=== PATIENT | female | born 1975 | race Caucasian/White ===

== ENCOUNTER 2017-03-16 10:05 | Emergency (ER) | payer MEDICAID, OTHER ==
[~2017-03-16] VITALS: Ht 167.6 cm; Wt 66.8 kg
[2017-03-16 10:06] VITALS: BP 133/72
[2017-03-16] MEDS ORDERED: BUPR100T3 (10:13)
[2017-03-16] MEDS ORDERED: CITA10TA5 (10:13)
[2017-03-16] MEDS ORDERED: MUPI2OI EXT (10:51)
[2017-06-12] MEDS ORDERED: MINI1CAP PO (15:16)
[2017-06-12] MEDS ORDERED: ZOFR4TAB3 PO (19:19)
== END 2017-03-16 10:55 | disposition home or self-care (01) ==
LOC: M ED 10:05
DX: L73.9 Follicular disorder, unspecified (principal); Z72.0 Tobacco use

== ENCOUNTER 2017-04-11 17:37 | Emergency (ER) | payer MEDICAID, OTHER ==
[~2017-04-11] VITALS: Ht 165.1 cm; Wt 68.2 kg
[~2017-04-11 17:37] MED LIST: BUPR100T3; CITA10TA5; MUPI2OI EXT
[2017-04-11 17:38] VITALS: BP 126/67
[2017-04-11] MEDS ORDERED: TOPA1TAB PO (17:44)
--- NOTE | 2017-04-11 19:14 | REP ---
Clinical: Trauma. Rule out foreign body to first toe. Technique: AP, lateral, bilateral oblique views of the left toes. Findings: Age-related degenerative changes to the first toe including hallux valgus deformity noted. No acute fracture dislocation. No obvious foreign body. Impression: Degenerative changes. No obvious acute fracture / dislocation or foreign body. Signed by Maurice Contreras MD 04/11/2017 07:06 P
[2017-06-12] MEDS ORDERED: MINI1CAP PO (15:16)
[2017-06-12] MEDS ORDERED: ZOFR4TAB3 PO (19:19)
== END 2017-04-11 19:47 | disposition home or self-care (01) ==
LOC: M ED 17:37
DX: B35.1 Tinea unguium (principal); Z72.0 Tobacco use

== ENCOUNTER 2017-04-29 07:47 | Emergency (ER) | payer OTHER ==
[~2017-04-29] VITALS: Ht 167.6 cm; Wt 68.2 kg
[~2017-04-29 07:47] MED LIST changes: +TOPA1TAB PO
[2017-04-29] MEDS ORDERED: NAPROXEN 250 MG TAB PO ONE (09:30)
--- NOTE | 2017-04-29 10:19 | REP ---
ULTRASOUND RIGHT NECK: Ultrasound right neck soft tissues performed. Multiple lymph nodes are seen in the region of the reported palpable abnormalities. The largest measure 1.6 x 0.7 x 1.2 cm and 1.8 x 0.6 x 1.2 cm. IMPRESSION: Multiple lymph nodes identified in the right neck soft tissues as discussed above. Signed by Guillermo Del Cid MD 04/29/2017 05:40 P
[2017-04-29 10:41] VITALS: BP 110/61
[2017-04-29] MEDS ORDERED: NAPR500T PO (10:41)
[2017-04-29] MEDS ORDERED: AMOX500C PO (10:41)
[2017-06-12] MEDS ORDERED: MINI1CAP PO (15:16)
[2017-06-12] MEDS ORDERED: ZOFR4TAB3 PO (19:19)
== END 2017-04-29 10:48 | disposition home or self-care (01) ==
LOC: M ED 07:47
DX: R59.0 Localized enlarged lymph nodes (principal); F99 Mental disorder, not otherwise specified; Z79.899 Other long term (current) drug therapy; Z88.5 Allergy status to narcotic agent; F17.210 Nicotine dependence, cigarettes, uncomplicated

== ENCOUNTER → 2017-07-08 | Outpatient (CLI) | payer OTHER ==
[~2017-07-08] MED LIST changes: +AMOX500C PO; +CLON0.2T PO; +ISOVUE-370 76% 100ML VIAL (Q9967) As Ordered ONE; +MINI1CAP PO; +NAPR500T PO; +ZOFR4TAB3 PO
--- NOTE | 2017-07-08 10:55 | REP ---
CT NECK WITH CONTRAST: HISTORY: Enlarged lymph nodes. CONTRAST: Isovue 370, 75 mL. The naso, hodan- and hypopharynx, larynx and subglottic trachea are normal in appearance. The salivary and thyroid glands are normal in size and density. Small lymph nodes less than 1 cm in size are present in the internal jugular chains, posterior triangles and submandibular areas. The lung apices are clear. Minimal mucosal thickening is present in the maxillary sinuses. A left ocular prosthesis is present. IMPRESSION: There is no neck mass or adenopathy. Signed by Ricco Hamlin MD 07/08/2017 11:08 A
== END ==
LOC: M RAD 09:43
PROVIDERS: ATTEND Otolaryngology
DX: R59.0 Localized enlarged lymph nodes (principal)
CPT/HCPCS: 70491; Q9967

== ENCOUNTER 2017-07-12 12:47 | Emergency (ER) | payer OTHER ==
[~2017-07-12] VITALS: Ht 167.6 cm; Wt 71.3 kg
[~2017-07-12 12:47] MED LIST changes: -CLON0.2T PO; -ISOVUE-370 76% 100ML VIAL (Q9967) As Ordered ONE
[2017-07-12] MEDS ORDERED: NITROGLYCERIN 0.4 MG SUBL TABLET SL PRN (13:00)
[2017-07-12] MEDS ORDERED: ASPIRIN 81 MG CHEW TABLET PO ONE (13:00)
[2017-07-12] MEDS ORDERED: CLON0.2T PO (13:10)
--- NOTE | 2017-07-12 13:49 | REP ---
Chest two views HISTORY: Chest pain Comparison: None The lungs are clear. The heart is normal in size. The pulmonary vasculature is normal in appearance. The bony structure is intact. IMPRESSION: No acute disease. Signed by Ricco Hamlin MD 07/12/2017 01:40 P
[2017-07-12 13:52] LABS: BASO % 0.2 % (0.0-1.0); EOS # 0.1 10^3/uL (0.0-0.50); EOS % 1.3 % (0.0-3.0); IMMATURE GRANULOCYTE % 0.2 % (0-0); LYMPH # 1.1 10^3/uL (1.5-4.5); LYMPH % 20.6 % (24.0-44.0); MEAN CORPUSCULAR HEMOGLOBIN 29.6 pg (27.0-33.0); MEAN CORPUSCULAR HGB CONC 33.8 g/dl (32.0-36.5); MEAN CORPUSCULAR VOLUME 87.4 fl (80.0-96.0); MONO # 0.4 10^3/uL (0.0-0.8); MONO % 7.6 % (0.0-5.0); NEUTROPHILS # 3.7 10^3/uL (1.8-7.7); NEUTROPHILS % 70.1 % (36.0-66.0); PLATELET COUNT, AUTOMATED 231 10^3/uL (150-450); RED CELL DISTRIBUTION WIDTH 11.9 % (11.5-14.5); WHITE BLOOD COUNT 5.3 10^3/uL (4.0-10.0)
[2017-07-12 13:55] VITALS: BP 115/59
[2017-07-12] MEDS ORDERED: ONDANSETRON 4MG/2ML VIAL (J2405) As Ordered ONE (13:59)
[2017-07-12] MEDS ORDERED: ONDANSETRON 4MG/2ML VIAL (J2405) IV ONE (14:00)
[2017-07-12 14:02] LABS: INR 0.91
[2017-07-12 14:14] LABS: ALBUMIN 4.2 GM/DL (3.2-5.2); ALBUMIN/GLOBULIN RATIO 1.31 (1.00-1.93); ALKALINE PHOSPHATASE 90 U/L (45-117); ALT/SGPT 12 U/L (12-78); ANION GAP 8 MEQ/L (8-16); AST/SGOT 12 U/L (7-37); BILIRUBIN,DIRECT < 0.1 MG/DL (0.0-0.2); BILIRUBIN,TOTAL 0.4 MG/DL (0.2-1.0); BLOOD UREA NITROGEN 13 MG/DL (7-18); CALCIUM LEVEL 8.7 MG/DL (8.5-10.1); CARBON DIOXIDE LEVEL 24 MEQ/L (21-32); CHLORIDE LEVEL 109 MEQ/L (98-107); CREATININE FOR GFR 0.92 MG/DL (0.55-1.02); GLOMERULAR FILTRATION RATE > 60.0 (>58); GLUCOSE, FASTING 83 MG/DL (70-105); POTASSIUM SERUM 3.7 MEQ/L (3.5-5.1); SODIUM LEVEL 141 MEQ/L (136-145); TOTAL PROTEIN 7.4 GM/DL (6.4-8.2)
[2017-07-12 15:18] LABS: CONTROL LINE HCG INT CTR LINE PRESENT
[2017-07-12] MEDS ORDERED: ISOVUE-370 76% 100ML VIAL (Q9967) As Ordered ONE (17:24)
[2017-07-12] MEDS ORDERED: NS 1,000 ML IV ONE (17:30)
--- NOTE | 2017-07-12 18:32 | REP ---
CT ANGIO CHEST: HISTORY: Dyspnea. COMPARISON CT CHEST: None. CONTRAST: 100 mL Isovue-370 There is excellent visualization of the pulmonary arterial vasculature. There are no focal filling defects present that would be considered consistent with pulmonary emboli. There is no mediastinal or hilar adenopathy. There are no pleural or pericardial effusions. The images osseous structures are within normal limits. Evaluation of the lung duarte show no abnormal nodules, masses or opacities. IMPRESSION: CT findings are within normal limits. CT ABDOMEN AND PELVIS: HISTORY: Lower abdominal pain. The examination was ordered and performed without intravenous contrast, which decreases the sensitivity the exam. There are no prior exams for comparison. The lung bases are clear. There is an incidental 3 mm sized pleural based left lower lobe nodule. Limited evaluation of the solid intraabdominal organs and gallbladder show no gross abnormalities. Limited evaluation of the pancreas, adrenal glands and kidneys show no gross abnormalities. There is no nephroureterolithiasis, hydronephrosis or hydroureter. There are no urinary bladder calcifications. Limited evaluation of the bowel loops and the mesentery show on gross abnormalities. There is no evidence of free fluid or free air. Limited evaluation of the abdominal aorta and periaortic regions show no gross abnormalities. CT PELVIS: Limited evaluation of the bowel loops and their mesenteries show no gross abnormalities. There is no free fluid or free air. There is no evidence of a mass or adenopathy. Bone window technique through the examination shows the osseous structures to be within normal limits. IMPRESSION: CT findings as described above, within normal limits. There is an incidental 3 mm sized pleural based nodule in the left lung base. Signed by Jarret Montaño DO 07/12/2017 07:07 P
[2017-07-12 20:14] VITALS: BP 98/52
--- NOTE | 2017-07-13 12:20 | ECGEPIP ---
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
--- NOTE | 2017-07-13 12:29 | ECGEPIP ---
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
--- NOTE | 2017-07-15 12:56 | ED PDOC ---
Post-Departure Follow-Up dr persaud faxed formal report of ct abd/p for fu Puja Polanco MD Jul 15, 2017 12:56
== END 2017-07-12 20:30 | disposition home or self-care (01) ==
LOC: EDBD 12:47 → M ED 12:47
DX: R07.9 Chest pain, unspecified (principal); R06.02 Shortness of breath; R11.0 Nausea; Z79.899 Other long term (current) drug therapy; Z88.5 Allergy status to narcotic agent; F17.210 Nicotine dependence, cigarettes, uncomplicated
CPT/HCPCS: 71020; 71275; 74177; 80048; 80076; 82550; 82553; 83690; 84703; 85025; 85610; 85730; 93000; 93041; 94760; 96374; 99285; J2405; Q9967

== ENCOUNTER 2017-12-02 07:20 | Emergency (ER) | payer OTHER ==
[2017-12-02] MEDS: NS 1,000 ML IV (08:15)
[2017-12-02] MEDS: ONDANSETRON 4MG/2ML VIAL (J2405) IV (08:30)
[2017-12-02 08:45] LABS: BASO % 0.2 % (0.0-1.0); EOS # 0.2 10^3/uL (0.0-0.50); EOS % 3.3 % (0.0-3.0); HEMATOCRIT 42.6 % (36.0-47.0); HEMOGLOBIN 14.5 g/dl (12.0-15.5); IMMATURE GRANULOCYTE % 0.2 % (0-3.0); LYMPH # 0.9 10^3/uL (1.5-4.5); LYMPH % 16.9 % (24.0-44.0); MEAN CORPUSCULAR HEMOGLOBIN 29.5 pg (27.0-33.0); MEAN CORPUSCULAR VOLUME 86.6 fl (80.0-96.0); MONO # 0.5 10^3/uL (0.0-0.8); MONO % 9.1 % (0.0-5.0); NEUTROPHILS # 3.8 10^3/uL (1.8-7.7); NEUTROPHILS % 70.3 % (36.0-66.0); PLATELET COUNT, AUTOMATED 178 10^3/uL (150-450); RED BLOOD COUNT 4.92 10^6/uL (4.00-5.40); RED CELL DISTRIBUTION WIDTH 12.4 % (11.5-14.5); WHITE BLOOD COUNT 5.4 10^3/uL (4.0-10.0)
[2017-12-02 08:49] LABS: KETONE, URINE AUTO RFX NEGATIVE (NEGATIVE); LEUKOCYTE ESTERASE UR AUTO RFX NEGATIVE (NEGATIVE); NITRITE, URINE AUTO RFX NEGATIVE (NEGATIVE); RBC, URINE AUTO RFX 3 /HPF (0-3); SPECIFIC GRAVITY UR AUTO RFX 1.027 (1.002-1.035); SQUAM EPITHELIAL CELL UR AURFX 4 /HPF (0-6); WBC, URINE AUTO RFX 2 /HPF (0-3)
[2017-12-02 09:12] LABS: ALBUMIN 3.8 GM/DL (3.2-5.2); ALBUMIN/GLOBULIN RATIO 1.06 (1.00-1.93); ALKALINE PHOSPHATASE 79 U/L (45-117); ALT/SGPT 12 U/L (12-78); AMYLASE 33 U/L (25-115); ANION GAP 7 MEQ/L (8-16); AST/SGOT 23 U/L (7-37); BILIRUBIN,DIRECT < 0.1 MG/DL (0.0-0.2); BILIRUBIN,TOTAL 0.4 MG/DL (0.2-1.0); BLOOD UREA NITROGEN 16 MG/DL (7-18); CALCIUM LEVEL 8.3 MG/DL (8.5-10.1); CARBON DIOXIDE LEVEL 21 MEQ/L (21-32); CHLORIDE LEVEL 115 MEQ/L (98-107); CREATININE FOR GFR 1.02 MG/DL (0.55-1.30); GLOMERULAR FILTRATION RATE > 60.0 (>58); GLUCOSE, FASTING 93 MG/DL (70-100); LIPASE 48 U/L (73-393); SODIUM LEVEL 143 MEQ/L (136-145); TOTAL PROTEIN 7.4 GM/DL (6.4-8.2)
[2017-12-02] MEDS: METOCLOPRAMIDE INJ 10MG/2ML VIAL (J2765) IV (10:11)
== END 2017-12-02 12:25 | disposition home or self-care (01) ==
LOC: M ED 07:20
DX: A08.4 Viral intestinal infection, unspecified (principal); Z88.5 Allergy status to narcotic agent; Z79.899 Other long term (current) drug therapy
CPT/HCPCS: J2405